=== PATIENT | male | born 1955 | race Caucasian/White ===

== ENCOUNTER → 2020-03-26 14:17 | Outpatient (BNVA) | payer OTHER, SELFPAY | PROVIDERS: Family Provider Family Medicine; PCP Family Medicine; Referring Provider Dermatology; Visit Provider Dermatology | DX: L53.1 Erythema annulare centrifugum (principal); L30.8 Other specified dermatitis | CPT/HCPCS: 99203 ==

== ENCOUNTER → 2020-04-28 16:04 | Outpatient (BNVA) | payer OTHER, SELFPAY | PROVIDERS: Family Provider Family Medicine; PCP Family Medicine; Visit Provider Dermatology | DX: L53.1 Erythema annulare centrifugum (principal); L30.8 Other specified dermatitis | CPT/HCPCS: 99213 ==

== ENCOUNTER → 2021-08-30 12:54 | Outpatient (BNVA) | payer MEDICARE, BC, SELFPAY | PROVIDERS: Family Provider Family Medicine; PCP Family Medicine; Visit Provider Nurse Practitioner Family | DX: Z20.822 Contact with and (suspected) exposure to COVID-19 (principal) | CPT/HCPCS: 87635 ==

== ENCOUNTER 2022-01-18 07:21 | Outpatient (CLI) | payer SELFPAY ==
[2022-01-18 14:26] LABS: Prostate Specific Antigen Scr 0.63 ng/mL (0-4)
== END 2022-01-18 07:22 | disposition home or self-care (01) ==
LOC: LAB 07:22
PROVIDERS: Family Provider Family Medicine; PCP Family Medicine; Visit Provider Dermatology
DX: Z00.00 Encounter for general adult medical examination without abnormal findings (principal)
CPT/HCPCS: 36415

== ENCOUNTER → 2022-09-16 08:26 | Outpatient (BNVA) | payer MEDICARE, SELFPAY | PROVIDERS: Family Provider Family Medicine; PCP Family Medicine; Visit Provider Family Medicine | DX: N18.32 Chronic kidney disease, stage 3b (principal) | CPT/HCPCS: 80069; 82043; 82306; 82310; 83970; 85025 ==

== ENCOUNTER → 2022-09-28 08:01 | Outpatient (BNVA) | payer MEDICARE, BC, SELFPAY | PROVIDERS: Family Provider Family Medicine; PCP Family Medicine; Visit Provider Orthopaedic Surgery | DX: M75.02 Adhesive capsulitis of left shoulder (principal) | CPT/HCPCS: 73030; 99203 ==

== ENCOUNTER 2022-09-30 06:00 | Outpatient (RCR) | payer MEDICARE, BC, SELFPAY | END 2022-10-04 23:59 | disposition home or self-care (01) | LOC: SPT 06:00 | PROVIDERS: Family Provider Family Medicine; PCP Family Medicine; Visit Provider Orthopaedic Surgery | DX: M75.02 Adhesive capsulitis of left shoulder (principal) | CPT/HCPCS: 97110; 97140; 97161 ==

== ENCOUNTER 2022-10-05 06:00 | Outpatient (RCR) | payer MEDICARE, BC, SELFPAY | END 2022-11-01 23:59 | disposition home or self-care (01) | LOC: SPT 06:00 | PROVIDERS: Family Provider Family Medicine; PCP Family Medicine; Visit Provider Orthopaedic Surgery | DX: M75.02 Adhesive capsulitis of left shoulder (principal) | CPT/HCPCS: 97110; 97140 ==

== ENCOUNTER → 2022-10-11 08:03 | Outpatient (BNVA) | payer MEDICARE, BC, SELFPAY | PROVIDERS: Family Provider Family Medicine; PCP Family Medicine; Visit Provider Family Medicine | DX: N18.32 Chronic kidney disease, stage 3b (principal) | CPT/HCPCS: 80048 ==

== ENCOUNTER → 2022-10-25 08:08 | Outpatient (BNVA) | payer MEDICARE, BC, SELFPAY | PROVIDERS: Family Provider Family Medicine; PCP Family Medicine; Visit Provider Family Medicine | DX: E87.5 Hyperkalemia (principal) | CPT/HCPCS: 80048 ==

== ENCOUNTER → 2022-11-02 08:03 | Outpatient (BNVA) | payer MEDICARE, BC, SELFPAY | PROVIDERS: Family Provider Family Medicine; PCP Family Medicine; Visit Provider Orthopaedic Surgery | DX: M75.02 Adhesive capsulitis of left shoulder (principal) | CPT/HCPCS: 99212 ==

== ENCOUNTER → 2022-11-03 08:16 | Outpatient (BNVA) | payer MEDICARE, BC, SELFPAY | PROVIDERS: Family Provider Family Medicine; PCP Family Medicine; Visit Provider Family Medicine | DX: N18.32 Chronic kidney disease, stage 3b (principal); D63.1 Anemia in chronic kidney disease | CPT/HCPCS: 80048 ==

== ENCOUNTER → 2023-04-27 11:28 | Outpatient (BNVA) | payer MEDICARE, BC, SELFPAY | PROVIDERS: Family Provider Family Medicine; PCP Family Medicine; Visit Provider Nurse Practitioner Family | DX: L82.0 Inflamed seborrheic keratosis (principal); D22.5 Melanocytic nevi of trunk; L57.8 Other skin changes due to chronic exposure to nonionizing radiation; L82.1 Other seborrheic keratosis; L85.3 Xerosis cutis | CPT/HCPCS: 17110; 99213 ==

== ENCOUNTER → 2023-09-20 09:18 | Outpatient (BNVA) | payer MEDICARE, BC, SELFPAY | PROVIDERS: Family Provider Family Medicine; PCP Family Medicine; Visit Provider Family Medicine | DX: N18.9 Chronic kidney disease, unspecified (principal); R79.89 Other specified abnormal findings of blood chemistry | CPT/HCPCS: 17000; 80048; 80069; 82306; 82542; 82570; 84156; 85025; 99214 ==

== ENCOUNTER 2024-07-16 08:05 | Outpatient (CLI) | payer SELFPAY | END 2024-07-16 08:06 | disposition home or self-care (01) | LOC: LAB 08:07 | PROVIDERS: Family Provider Family Medicine; PCP Family Medicine; Visit Provider Dermatology | DX: Z13.9 Encounter for screening, unspecified (principal) | CPT/HCPCS: 36415 ==

== ENCOUNTER → 2024-09-12 15:26 | Outpatient (BNVA) | payer MEDICARE, OTHER, SELFPAY | PROVIDERS: Family Provider Family Medicine; PCP Family Medicine; Visit Provider Nurse Practitioner Family | DX: L20.89 Other atopic dermatitis (principal); L29.89 Other pruritus; D22.5 Melanocytic nevi of trunk; L57.8 Other skin changes due to chronic exposure to nonionizing radiation; L82.1 Other seborrheic keratosis; L85.3 Xerosis cutis; L82.0 Inflamed seborrheic keratosis; Z78.9 Other specified health status; L53.8 Other specified erythematous conditions | CPT/HCPCS: 17110; 99214 ==

== ENCOUNTER → 2024-09-13 08:35 | Outpatient (BNVA) | payer MEDICARE, OTHER, SELFPAY | PROVIDERS: Family Provider Family Medicine; PCP Family Medicine; Visit Provider Family Medicine | DX: N28.9 Disorder of kidney and ureter, unspecified (principal) | CPT/HCPCS: 80069; 82310; 82570; 83970; 84156; 85025 ==

== ENCOUNTER 2024-09-20 10:35 | Outpatient (CLI) | payer MEDICARE, OTHER, SELFPAY ==
[2024-09-20 11:23] LABS: Albumin Level 4.3 g/dL (3.5-5.2); Blood Urea Nitrogen 18 mg/dL (8-23); Calcium 10.1 mg/dL (8.5-10.5); Carbon Dioxide 28 mmol/L (22-29); Chloride 101 mmol/L (98-107); Glomerular Filtration Rate 31.5 mL/min (90-130); Glucose 122 mg/dL (65-115); Phosphorus 1.9 mg/dL (2.5-4.5); Sodium 140 mmol/L (136-145)
[2024-09-20 11:25] LABS: Anion Gap 15.9 (5-19); Potassium 4.9 mmol/L (3.5-5.1)
== END 2024-09-20 10:36 | disposition home or self-care (01) ==
PROVIDERS: Family Provider Family Medicine; PCP Family Medicine; Visit Provider Registered Nurse
DX: E87.5 Hyperkalemia (principal)
CPT/HCPCS: 80069

== ENCOUNTER 2024-10-17 08:59 | Outpatient (CLI) | payer MEDICARE, OTHER, SELFPAY ==
[2024-10-17 09:43] LABS: Albumin Level 4.3 g/dL (3.5-5.2); Anion Gap 13.6 (5-19); Blood Urea Nitrogen 24 mg/dL (8-23); Calcium 9.7 mg/dL (8.5-10.5); Carbon Dioxide 26 mmol/L (22-29); Chloride 102 mmol/L (98-107); Glomerular Filtration Rate 29.8 mL/min (90-130); Glucose 110 mg/dL (65-115); Phosphorus 2.1 mg/dL (2.5-4.5); Potassium 4.6 mmol/L (3.5-5.1); Sodium 137 mmol/L (136-145)
== END 2024-10-17 09:00 | disposition home or self-care (01) ==
LOC: LAB 09:01
PROVIDERS: Family Provider Family Medicine; PCP Family Medicine; Visit Provider Internal Medicine Nephrology
DX: E87.5 Hyperkalemia (principal)
CPT/HCPCS: 36415; 80069

== ENCOUNTER → 2025-02-18 09:36 | Outpatient (BNVA) | payer MEDICARE, OTHER, SELFPAY | PROVIDERS: Family Provider Family Medicine; PCP Family Medicine; Visit Provider Nurse Practitioner Family | DX: L20.89 Other atopic dermatitis (principal); L29.89 Other pruritus; Z79.899 Other long term (current) drug therapy; L82.1 Other seborrheic keratosis; L82.0 Inflamed seborrheic keratosis; Z78.9 Other specified health status; R20.8 Other disturbances of skin sensation; L53.8 Other specified erythematous conditions | CPT/HCPCS: 17110; 99214 ==

== ENCOUNTER → 2025-03-24 07:53 | Outpatient (BNVA) | payer MEDICARE, OTHER, SELFPAY | PROVIDERS: Family Provider Family Medicine; PCP Family Medicine; Visit Provider Dermatology | DX: L20.89 Other atopic dermatitis (principal); L29.89 Other pruritus; Z79.899 Other long term (current) drug therapy; L30.9 Dermatitis, unspecified | CPT/HCPCS: 11104; 99214 ==

== ENCOUNTER → 2025-04-04 11:22 | Outpatient (BNVA) | payer MEDICARE, OTHER, SELFPAY | PROVIDERS: Family Provider Family Medicine; PCP Family Medicine; Visit Provider Dermatology | DX: L20.89 Other atopic dermatitis (principal) | CPT/HCPCS: 99214 ==

== ENCOUNTER 2025-04-22 09:08 | Outpatient (CLI) | payer MEDICARE, OTHER, SELFPAY ==
[2025-04-22 10:22] LABS: Hematocrit 49.4 % (37-53); Hemoglobin 16.30 g/dL (11.27-16.99); Mean Corpuscular HGB Conc 33.0 g/dL (30-55); Mean Corpuscular Hemoglobin 31.6 pg (27-33); Mean Corpuscular Volume 95.7 fl (82-101); Nucleated Red Blood Cells % 0 %; Platelet Count 249 10^3/cmm (157-399); Red Blood Count 5.16 10^6/uL (3.85-5.65); White Blood Count 6.85 10^3/uL (3.29-11.43)
[2025-04-22 10:46] LABS: Albumin Level 4.1 g/dL (3.5-5.2); Anion Gap 16.0 (5-19); Blood Urea Nitrogen 23 mg/dL (8-23); Calcium 9.7 mg/dL (8.5-10.5); Carbon Dioxide 25 mmol/L (22-29); Chloride 106 mmol/L (98-107); Glucose 110 mg/dL (65-115); Potassium 5.0 mmol/L (3.5-5.1); Sodium 142 mmol/L (136-145)
[2025-04-22 10:48] LABS: Creatinine Urine, Random 99 mg/dL (39-259)
[2025-04-22 10:52] LABS: Microalbum Creatinine Ratio Ur 182 mg/dL (0-20)
== END 2025-04-22 09:09 | disposition home or self-care (01) ==
LOC: LAB 09:10
PROVIDERS: PCP Family Medicine; Visit Provider Internal Medicine Nephrology
DX: N18.32 Chronic kidney disease, stage 3b (principal)
CPT/HCPCS: 36415; 80069; 82044; 85025

== ENCOUNTER → 2025-06-02 09:02 | Outpatient (BNVA) | payer MEDICARE, OTHER, SELFPAY | PROVIDERS: PCP Family Medicine; Visit Provider Dermatology | DX: L20.89 Other atopic dermatitis (principal) | CPT/HCPCS: 99214 ==

== ENCOUNTER 2025-07-17 09:06 | Outpatient (CLI) | payer SELFPAY ==
[2025-07-17 11:13] LABS: Cholesterol 175 mg/dL (0-200); HDL Cholesterol 39 mg/dL (60-100); Triglycerides 120 mg/dL (0-150)
== END 2025-07-17 09:07 | disposition home or self-care (01) ==
PROVIDERS: PCP Family Medicine; Visit Provider Dermatology
DX: Z01.89 Encounter for other specified special examinations (principal)
CPT/HCPCS: 36415